=== PATIENT | male | born 1940 | race Caucasian/White ===

== ENCOUNTER 2025-10-06 12:42 | Inpatient (IN) | payer OTHER, SELFPAY ==
[2025-10-06 13:05] VITALS: BMI 28.6
[2025-10-06 13:05] LABS: Glucose - Point of Care 86 mg/dl (70-99)
--- NOTE | 2025-10-06 13:16 | PTCARENOTE ---
Rec'd pt. from [facility].
TVP boxes exchanged, settings per DH cards bedside --> See TVP Flowsheet.
Cards bedside, to schedule PPM today.
Reading Teacher made aware of arrival.
--- NOTE | 2025-10-06 13:45 | PTCARENOTE ---
Addendum entered by Johnathon Chatterjee RN 10/06/25 14:27:
Verbal report given to labor arbitrator.
Original Note:
EP/CARDS bedside, consented for PPM.
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
--- NOTE | 2025-10-06 16:42 | ITS.CL.PACE ---
Process Maintenance Technician - Pacemaker Implant
Pacemaker Implant
Procedure Report:
PACEMAKER IMPLANT REPORT
Primary Care Physician: Dr. Musa Redman
Primary Amusement Park Ride Mechanic: Dr. Kole Barrera
Date of Procedure: October 06, 2025
Procedure:
1: Dual chamber pacemaker implantation with fluoroscopic guidance
Indication/Diagnosis:
1: Non-reversible symptomatic bradycardia due to: sinus node dysfunction.
History: The patient is an 85-year-old man with a past medical history significant for syncope in the setting of sinus pauses with sick sinus syndrome and intermittent SVT who is referred for pacemaker placement. He initially presented to [facility] after an episode of syncope at home. During his admission he had recurrent syncope with a long sinus pause. A temporary pacemaker was placed from the right IJ approach. He was transferred to [facility] for further care.
Antibiotic: Ancef 2 g IV
Sedation: Conscious sedation as per anesthesia staff
Description of Procedure: After informed consent was obtained, 'time out' was called and confirmed, the patient was prepped and draped in a sterile fashion. Lidocaine with epinephrine was used for local anesthesia. Central venous access was
obtained via subclavian venopuncture after a venogram from the left arm confirmed subclavian patency. An incision was made along the left chest and a pre-pectoral pocket was formed. Using a Seldinger technique and peel-away sheaths, the pacing
leads were placed under fluoroscopic guidance. Once testing (see below) showed adequate and stable function, the leads were secured using the suture sleeves. The pocket was liberally irrigated with antibiotic solution. The leads were connected to
the generator header and the leads and generator were placed within the pocket. Fluoroscopy confirmed stable lead position. The pocket was closed in the typical fashion.
IMPLANTS:
Company: Medtronic model [id number], SN: [id number] left Pectoral
RA: Medtronic 5076�45, SN: [id number], RAA
RV: Medtronic 5076�52, SN: [id number], RV apical septum
DEVICE TESTING:
Sensing: RA 2.5 mV, RV 10.1 mV
Capture: RA 0.75 V@0.4ms, RV 0.5 V@0.4ms
Ohms: RA 551, RV 646
FINAL PROGRAMMING
Andrey Pacing: AAIR<=> DDDR 60-130ppm
Complications: None.
Fluoroscopy Time (min): 8.0
Radiation Dose (mGy): 25
DAP (Gy.cm2): 2.3
CONCLUSIONS:
1: Successful implant of dual chamber permanent pacemaker
RECOMMENDATIONS:
1. Routine post-op care (tele, CXR).
2. In-Office wound check within 7 days.
3. Office interrogation within 4 weeks.
--- NOTE | 2025-10-06 17:10 | PTCARENOTE ---
Addendum entered by Johnathon Chatterjee RN 10/06/25 18:19:
Verbal diet order from Dr. Alicia sent via TT.
Original Note:
Returned from laborer wood preserving plant --> Downgraded to IVU.
See provider notes for procedural / Anesthesia details.
Family updated by physician team bedside.
--- NOTE | 2025-10-06 17:11 | W.PN.UPDATE ---
Update Note
Progress Note Update
as per cardiology: Xarelto on hold until patient will be sen in the office. cont BB. Diet after chest XR if unremarkable
[2025-10-06 20:15] VITALS: BP 105/65
[2025-10-06] MEDS: TOPROL XL 50 MG PO (20:20)
[2025-10-06 21:00] VITALS: BP 98/85
[2025-10-06 22:00] VITALS: BP 116/71
[2025-10-06] MEDS: ANCEF 5 IV (22:29)
[2025-10-06 22:30] LABS: Hematocrit 45.4 % (39.0-52.0); Hemoglobin 14.5 g/dL (13.0-18.0); Mean Corp Hgb Conc. 31.9 g/dL (33.0-37.0); Mean Corpuscular Volume 101.8 fL (80.0-94.0); Nucleated Red Blood Cells % 0 % (-); Platelet Count 116 10^3/uL (130-400); Red Cell Dist. Width 13.8 % (11.5-14.5)
[2025-10-06 22:40] LABS: INR 1.14; PT 14.9 Sec (11.4-14.6)
[2025-10-06 22:54] LABS: ALT (SGPT) 40 U/L (0-50); AST (SGOT) 40 U/L (17-59); Albumin 4.3 g/dl (3.5-5.0); Alkaline Phosphatase 88 U/L (38-126); Blood Urea Nitrogen 46 mg/dl (9-20); Calcium 9.4 mg/dl (8.4-10.2); Carbon Dioxide 35 mmol/L (22-30); Chloride 104 mmol/L (98-107); Estimated Creatinine Clearance 37 ml/min; Glucose 205 mg/dl (70-99); Potassium 4.6 mmol/L (3.5-5.1); Sodium 144 mmol/L (135-145); Total Protein 7.4 g/dl (6.3-8.2); eGFR 49.56
[2025-10-06 23:00] VITALS: BP 115/67
[2025-10-06 23:28] VITALS: BP 96/65
[2025-10-06 23:29] LABS: Hepatitis B Surface Antigen Negative (Negative)
[2025-10-06 23:47] LABS: Hepatitis C Antibody Negative (Negative)
--- NOTE | 2025-10-06 23:50 | PTCARENOTE ---
Received pt as transfer from ICU via wheelchair. Pt ambulatory into room with assist x2, pt assisted to bathroom, pt voided dark dave urine. Pt assisted to bed. Pt not steady on feet independently. CHG bath provided. Some blood tinged spots noted
on underpants, removed, scott care provided. HR in the 60's in NSR with PAC's, PVC's, occasional A pacing. POX 94% on 4 LO2 NC. Lungs dec T/O with scattered Ex wheezing noted. BANDA. + bowel, round obese abd. Weak pedal pulses present B/L LE mottled/
scattered ecchymosis. Right knee bruising noted. NEW Left chest wall pacemaker in place, DDDR, 60-130. Dressing intact. Pt denies any complaints of pain at this time. Pt instructed to call for assistance. Pt reports understanding. Call marr in
reach. Will continue to monitor.
[2025-10-07] VITALS (16 sets, daily range): BP systolic 83–146; BP diastolic 57–129; PULSE 70–87; O2SAT 91–96; BMI 28.8
[2025-10-07 05:15] LABS: Hematocrit 44.4 % (39.0-52.0); Hemoglobin 14.8 g/dL (13.0-18.0); Mean Corp Hgb Conc. 33.3 g/dL (33.0-37.0); Mean Corpuscular Volume 100.2 fL (80.0-94.0); Nucleated Red Blood Cells % 0 % (-); Platelet Count 117 10^3/uL (130-400); Red Cell Dist. Width 13.4 % (11.5-14.5)
[2025-10-07 05:24] LABS: ALT (SGPT) 39 U/L (0-50); AST (SGOT) 38 U/L (17-59); Albumin 4.1 g/dl (3.5-5.0); Alkaline Phosphatase 94 U/L (38-126); Blood Urea Nitrogen 49 mg/dl (9-20); Calcium 9.7 mg/dl (8.4-10.2); Carbon Dioxide 33 mmol/L (22-30); Chloride 105 mmol/L (98-107); Estimated Creatinine Clearance 40 ml/min; Glucose 101 mg/dl (70-99); Magnesium 2.1 mg/dl (1.6-2.3); Potassium 4.9 mmol/L (3.5-5.1); Sodium 144 mmol/L (135-145); Total Protein 7.5 g/dl (6.3-8.2); eGFR 54.17
[2025-10-07] MEDS: ANCEF 5 IV (05:25)
--- NOTE | 2025-10-07 05:54 | PTCARENOTE ---
Pt slept well overnight. No issues to report. Pt denies any complaints of pain. left pacemaker site C/D/I. HR in the 60's NSR with A Pacing, PAC's, PVC's. Pt woke up this am with left eye blood shot, denies any associated complaints. Call marr in
reach. Will monitor.
[2025-10-07] MEDS: TOPROL XL 50 MG PO ×2 (09:13→20:35)
[2025-10-07] MEDS: LASIX 40 MG PO (09:13)
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
--- NOTE | 2025-10-07 12:29 | CM ---
Reviewed chart. Met with and Mrs. Phan to review discharge plans. He states prior to admission he resides with his spouse in a [place] with three steps to enter. He states prior to admission he was independent with ambulation and adls.
He states he has a single point cane at home. He states he has a prescription plan and uses [facility]. We reviewed that he mehdi need a rolling walker/ will need a script for a rolling walker so we can give it to him here. Also reviewed VNA
Services with him. He is agreeable to VNA Services. He has selected [facility]. Telephone call to [facility] to make the referral. Sent the referral. Medical work-up in progress. The discharge plan is to return home
with his spouse and [facility] when medically stable.
[2025-10-07] MEDS: LASIX 20 MG IV (14:08)
--- NOTE | 2025-10-07 19:12 | PTCARENOTE ---
~[id number]: Handoff report received from nightshicain RN. Pt AOx4, NSR with PAC/PVCs/ occassionally A paced 70s, SBP 100s, RA satting 93%, slightly dyspnic with conversation/ exertion. Pt denies pain at this time. Patient ambulated halls with PT/OT,
tolerated. L upper chest dressing CDI, patient reeducated on mobility restrictions on L side. Patient frequently goes into sustained Atach 150s on tele, asmyptomatic, Raissa Gregg PA-C is aware, no new orders at this time. All needs met, call marr
within reach.
~[id number]: Patient continues to frequently go into Atach 140s, asymptomatic and then will self break to NSR 60s-70s. Cardiology is aware, medications adjusted. VSS. All needs met at this time, call marr within reach. Handoff report given to
myah BROTHERS
[2025-10-07] MEDS: TOPROL XL 25 MG PO (20:34)
[2025-10-08] VITALS (10 sets, daily range): BP systolic 81–111; BP diastolic 58–78; PULSE 70; O2SAT 96; BMI 28.9
--- NOTE | 2025-10-08 01:35 | PTCARENOTE ---
Pt A paced on monitor, VSS. Pt had an episode of atrial arrhythmias with HR in 140 BPM while in the bathroom. Pt asymptomatic at that time. Pt ambulates with x 1 assist.
[2025-10-08 05:28] LABS: Blood Urea Nitrogen 54 mg/dl (9-20); Calcium 9.3 mg/dl (8.4-10.2); Chloride 100 mmol/L (98-107); Estimated Creatinine Clearance 37 ml/min; Glucose 74 mg/dl (70-99); Magnesium 2.1 mg/dl (1.6-2.3); Potassium 3.9 mmol/L (3.5-5.1); Sodium 140 mmol/L (135-145); eGFR 49.56
[2025-10-08 05:36] LABS: Carbon Dioxide 34 mmol/L (22-30)
[2025-10-08] MEDS: FARXIGA 10 MG PO (08:30)
[2025-10-08] MEDS: INSPRA 25 MG PO (08:31)
[2025-10-08] MEDS: LASIX 40 MG PO (08:31)
[2025-10-08] MEDS: TOPROL XL 25 MG PO (08:31)
[2025-10-08] MEDS: TOPROL XL 50 MG PO (08:31)
[2025-10-08] MEDS: KCL 40 MEQ PO (10:19)
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
--- NOTE | 2025-10-08 13:45 | CM ---
Reviewed chart. Met with and Mrs. Phan to review discharge plans. We [facility]. Spoke with Physical therapist who recommended a rolling walker. Adalgisa. gave him
the rolling walker. Asked Valentin for script for walker. Prior to admission he resides with his spouse in a raised rancher with three steps to enter. Prior to admission he was independent with ambulation and adls. He has a single point cane at home.
He has a prescription plan and uses [facility]. Medical work-up in progress. [facility] to update her on discharge date. Left message. The discharge plan is to return home with his spouse and [facility] when
medically stable.
== END 2025-10-08 16:34 | disposition home health service (06) | DRG 242 ==
LOC: IVU 12:42
PROVIDERS: Nurse Practitioner; ADMITTING PHYSICIAN Internal Medicine Interventional Cardiology; ATTENDING PHYSICIAN Internal Medicine; CONSULT PHYSICIAN Internal Medicine Cardiovascular Disease
PROC: 02H63JZ Insertion of Pacemaker Lead into Right Atrium, Percutaneous Approach (ICD-10-PCS; 2025-10-06)
PROC: 02HK3JZ Insertion of Pacemaker Lead into Right Ventricle, Percutaneous Approach (ICD-10-PCS; 2025-10-06)
PROC: 0JH606Z Insertion of Pacemaker, Dual Chamber into Chest Subcutaneous Tissue and Fascia, Open Approach (ICD-10-PCS; 2025-10-06)
DX: I49.5 Sick sinus syndrome (principal); I50.23 Acute on chronic systolic (congestive) heart failure; E87.0 Hyperosmolality and hypernatremia; I47.20 Ventricular tachycardia, unspecified; I13.0 Hypertensive heart and chronic kidney disease with heart failure and stage 1 through stage 4 chronic kidney disease, or unspecified chronic kidney disease; D75.89 Other specified diseases of blood and blood-forming organs; D69.6 Thrombocytopenia, unspecified; E87.5 Hyperkalemia; R74.01 Elevation of levels of liver transaminase levels; N18.31 Chronic kidney disease, stage 3a; I48.0 Paroxysmal atrial fibrillation; I34.0 Nonrheumatic mitral (valve) insufficiency; I25.10 Atherosclerotic heart disease of native coronary artery without angina pectoris; E11.22 Type 2 diabetes mellitus with diabetic chronic kidney disease; E78.5 Hyperlipidemia, unspecified; I27.20 Pulmonary hypertension, unspecified; I44.0 Atrioventricular block, first degree; Z79.01 Long term (current) use of anticoagulants; Z79.899 Other long term (current) drug therapy; Z79.84 Long term (current) use of oral hypoglycemic drugs; Z91.010 Allergy to peanuts
CPT/HCPCS: 33208; 71045; 80048; 80053; 82962; 83735; 83880; 85025; 85610; 86704; 86706; 86803; 87340; 93005; 93306; 97116; 97163; 97167; 97530; C1785; C1887; C1898